=== PATIENT | male | born 2000 | race Caucasian/White ===

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

== ENCOUNTER 2018-10-22 18:05 | Emergency (ER) | payer OTHER ==
[~2018-10-22] VITALS: Ht 190.5 cm; Wt 89.7 kg
[2018-10-22 18:05] VITALS: BP 141/73
== END 2018-10-22 19:02 | disposition left against medical advice (07) ==
LOC: M ED 18:05
DX: Z53.21 Procedure and treatment not carried out due to patient leaving prior to being seen by health care provider (principal)

== ENCOUNTER 2019-03-05 15:09 | Inpatient (IN) | payer OTHER ==
[~2019-03-05] VITALS: Ht 193 cm; Wt 101.1 kg
[2019-03-05 15:44] LABS: HEMATOCRIT 45.3 % (42.0-52.0); HEMOGLOBIN 15.9 g/dl (13.5-17.5); MEAN CORPUSCULAR HEMOGLOBIN 30.8 pg (27.0-33.0); MEAN CORPUSCULAR HGB CONC 35.1 g/dl (32.0-36.5); MEAN CORPUSCULAR VOLUME 87.6 fl (80.0-96.0); PLATELET COUNT, AUTOMATED 245 10^3/uL (150-450); RED BLOOD COUNT 5.17 10^6/uL (4.30-6.10); WHITE BLOOD COUNT 6.5 10^3/uL (4.0-10.0)
[2019-03-05 16:19] LABS: ACETAMINOPHEN LEVEL < 2.0 UG/ML (10.0-30.0); ALT/SGPT 53 U/L (12-78); AMPHETAMINES LEVEL URINE NEGATIVE (NEGATIVE); BARBITURATES URINE NEGATIVE (NEGATIVE); BENZODIAZEPINES URINE NEGATIVE (NEGATIVE); BILIRUBIN,DIRECT < 0.1 MG/DL (0.0-0.2); BILIRUBIN,TOTAL 0.3 MG/DL (0.2-1.0); BLOOD UREA NITROGEN 10 MG/DL (7-18); CALCIUM LEVEL 8.8 MG/DL (8.5-10.1); CANNABINOIDS URINE NEGATIVE (NEGATIVE); CARBON DIOXIDE LEVEL 28 MEQ/L (21-32); CHLORIDE LEVEL 105 MEQ/L (98-107); COCAINE METABOLITE URINE NEGATIVE (NEGATIVE); CREATININE FOR GFR 0.83 MG/DL (0.70-1.30); ETHYL ALCOHOL (ETHANOL) < 0.003 % (0.000-0.010); GLOMERULAR FILTRATION RATE > 60.0 (>60); GLUCOSE, FASTING 90 MG/DL (70-100); METHADONE URINE NEGATIVE (NEGATIVE); OPIATES URINE NEGATIVE (NEGATIVE); PHENCYCLIDINE URINE NEGATIVE (NEGATIVE); SALICYLATE LEVEL < 1.7 MG/DL (5.0-30.0); SODIUM LEVEL 139 MEQ/L (136-145); TOTAL PROTEIN 7.2 GM/DL (6.4-8.2)
[2019-03-05] MEDS ORDERED: MAALOX 30 ML SUSP *UDC PO PRN (17:30)
[2019-03-05] MEDS ORDERED: ACETAMINOPHEN TAB 650MG DOSE (2X325MG) PO PRN (17:30)
[2019-03-05] MEDS ORDERED: MOM 30ML SUSPENSION UDC PO PRN (17:30)
[2019-03-05 18:29] VITALS: BP 131/67
[2019-03-06 06:28] VITALS: BP 117/60
[2019-03-06 11:24] VITALS: BP 127/64
--- NOTE | 2019-03-06 11:57 | MHHPEPDOC ---
General Date Of Admission: Mar 05, 2019 Legal Status: 9.39 Chief Complaint "I can't do another 2yrs like this." History of Present Illness HISTORY OF THE PRESENT ILLNESS: Patient is a 19 -year-old , AD, male, with no previous psych history who was sent to ED after seen at [facility] endorsing d epression and SI with plan to either crash his car or slit his wrist per ED. Pt stated in the ED "I need help." Per ED pt stated that his depression and SI were trigger by feeling harassed by his NCO, singled out by his Darryl, issued an Article 15 for no shaving, and being home sick as he's from [place] and has not seen his family in a while. States in ED "I can't do another 2yrs like this." Psychiatric Review of Systems Depression (2 or more weeks): depressed mood, feelings of worthlesness, difficulty concentrating, suicidal thoughts Gina (4 or more days of): denies Psychosis: denies PTSD: denies Anxiety: situational anxiety, stressor related anxiety Anxiety/ 6 months or more of: restlessness, keyed up, difficulty concentrating, irritability, muscle tension Past Psychiatric History Previous Psychiatric Diagnosis: denies Previous Psychiatric Admissions: denies Suicide Attempts: denies Psychiatric Follow-up: denies Psychiatric medications: denies Past Medical History Medical Problems denies Head Injury: No Seizures: No Hospitalizations: No Surgeries: No Family Medical/Psychiatric HX Medical Problems noncontributory Psychiatric Disorders: No Addiction: No Suicide Attemps/Completions: No Addiction History nicotine Social History Childhood: born and raised in [place], 2 parent home, good childhood, [facility] (according to [facility] has 50 days accrued leave but [facility] will not allow him to take time off) Abuse/Trauma:denies Current Living Situation: [facility] Education: high school grad 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, infantry, E3, 1 deployment for 9mo Social Support: family Legal: denies Marital: single, never , no kids Mental Status Examination General Appearance: well groomed, appears stated age, hospital scubs/clothing, other (b/l arm tatoos) Build: average, tall Demeanor: average Eye Contact: average Activity: average Behavior: cooperative Speech: clear, normal volume, reg/rate,rhythm,volume Mood: depressed Mood "better" Affect: full, appropriate, congruent Thought Process: logical/linear, depressed, intact Thought Content (Delusions): none reported, denies SI, HI, AVH Thought Content (Other): none reported, appropriate Thought Content (Aggressive): none reported Perception (Hallucinations): none reported Perception (Other): none reported Cognition (Impairment of): none reported Cognition(Intelligence Est.): average Oriented: Awake, Alert, Oriented times three Insight: fair Judgment: Fair Psychosis: Denies Diagnoses Adjustment d/o with Anxiety and Depression A-FIB/CHADSVASC A-FIB History Current/History of A-Fib/PAF?: No Current PO Anticoag Therapy: No Treatment Treatment ordered: NONE Reason Anticoagulant not given: Not indicated/Olalz6rind Assessment Pt seen and states he here b/c he was having thoughts of suicide and depression due the "army taking a toll on me and I got stressed out." States he feels his Darryl has been "singling me out" like having him go in the middle of a room in front of people and yelling at me to embarrass me. States he misses his family who couldn't see him in August when he wanted to come due to [employer] not covering his flight so has to wait till next August causing him to miss them as hasn't seen them for 1.5yrs. States he feels "better" today and denies SI/HI. States he believes he's depressed "due to being in the [employer]... being at work around certain people stresses me out." due to unit "picking on me." States being here and talking about it has been helpful for him. Denies he feels he needs alf psychotropic medication nor does he appear to need any as symptoms most likely due to current situation with Darryl and dislike of the army, missing family and pt prefers to try group therapy and talking with staff and myself to help mood. Will provide him with atarax prn anxiety and trazodone prn insomnia. Feels safe here. Denies SI/HI, hallucinations, delusions. Initial Treatment Plan 1. Patient was admitted on a 9.39 status. 2. Complete history was obtained. 3. With patients permission, family will be contacted and database will be expanded. 4. Patients medication regimen will be reviewed and changed accordingly. 5. Patient will be provided with protected environment. 6. Patient will be treated with individual, group, and milieu therapies. 7. Patient will receive supportive psych-education. 8. Discharge planning will commence immediately. 9. Outpatient follow-up treatment will be strongly recommended. 10. The initial treatment plan will focus initially on: * Depression. * Risk for suicide. * Substance abuse. 11. atarax 25mg q6hr prn anxiety and trazodone 50mg qhs prn insomnia ESTIMATED LENGTH OF STAY: 3-5 DAYS. TIME SPENT COUNSELING AND COORDINATING INITIAL CARE: 60 minutes. Vital Signs Vital Signs Date Time Temp Pulse Resp B/P (MAP) Pulse Ox O2 Delivery O2 Flow Rate FiO2 03/06/19 06:28 98.7 88 16 117/60 (79) 03/05/19 18:29 99 03/05/19 17:42 Room Air Laboratory Data 24H Labs Laboratory Tests 2 03/05/19 15:25: Nucleated Red Blood Cells % (auto) 0.0, Anion Gap 6L, Glomerular Filtration Rate > 60.0, Calcium Level 8.8, Aspartate Amino Transf (AST/SGOT) 22, Alanine Aminotransferase (ALT/SGPT) 53, Alkaline Phosphatase 88, Total Bilirubin 0.3, Direct Bilirubin < 0.1, Total Protein 7.2, Albumin 4.0, Albumin/Globulin Ratio 1 .25, Thyroid Stimulating Hormone (TSH) 0.970, Salicylates Level < 1.7L, Urine Amphetamines Screen NEGATIVE, Urine Benzodiazepines Screen NEGATIVE, Urine Opiates Screen NEGATIVE, Urine Methadone Screen NEGATIVE, Acetaminophen Level < 2.0L, Urine Barbiturates Screen NEGATIVE, Urine Phencyclidine Screen NEGATIVE, Urine Cocaine Metabolite Screen NEGATIVE, Urine Cannabinoids Screen NEGATIVE, Ethyl Alcohol Level < 0.003 CBC/BMP Laboratory Tests 03/05/19 15:25 Red Blood Count 5.17, Mean Corpuscular Volume 87.6, Mean Corpuscular Hemoglobin 30.8, Mean Corpuscular Hemoglobin Concent 35.1, Red Cell Distribution Width 12.8 Medications No Active Prescriptions or Reported Meds Allergies Coded Allergies: No Known Drug Allergies (Verified Allergy, Unknown, 03/05/19) SHAWN GONZALEZ DO Mar 06, 2019 11:56
--- NOTE | 2019-03-06 13:53 | HPEPDOC ---
General Date of Admission Mar 05, 2019 at 17:52 Date of Service: Mar 06, 2019 Attending Physician: LENARD NELSON MD Chief Complaint The patient is a 19-year-old male admitted with a reason for visit of Unspecified Depressive Do. History of Present Illness Patient is a 19-year-old male, active duty , brought to the emergency room and admitted to inpatient psychiatric unit on account of depression with suicidal ideation. On assessment, he denies any medical history. He denies any symptoms of chest pain, shortness of breath, weakness, nausea, abdominal pain, chills, fever. Home Medications No Active Prescriptions or Reported Meds Allergies Coded Allergies: No Known Drug Allergies (Verified Allergy, Unknown, 03/05/19) Past Medical History Medical History Denies medical history Surgical History Denies surgical history Family History Denies any family history Social History * Smoker: Denies Alcohol: Denies Drugs: denies A-FIB/CHADSVASC A-FIB History Current/History of A-Fib/PAF?: No Current PO Anticoag Therapy: No Review of Systems Other systems A 10 point pertinent review of systems was completed, negative except as stated in the history of presenting illness. Physical Examination Other physical findings GENERAL: NAD SKIN : Warm, dry intact HEENT: Atraumatic, normocephalic, PERRL, moist mucous membrane CARDIOVASCULAR: Regular rate and rhythm, S1S2, no JVD, no edema, distal pulses + and palpable RESP: CTAB, no accessory muscle use noted ABDOMEN: BS+ non distended non tender MS: no joint deformities NEURO: Alert and oriented x 3, CN2-12 grossly intact PSYCH: no anxiety or agitation, flat affect. Vital Signs Vital Signs Date Time Temp Pulse Resp B/P (MAP) Pulse Ox O2 Delivery O2 Flow Rate FiO2 03/06/19 11:24 98.5 75 16 127/64 (85) 03/05/19 18:29 99 03/05/19 17:42 Room Air Laboratory Data Labs 24H Laboratory Tests 2 03/05/19 15:25: Nucleated Red Blood Cells % (auto) 0.0, Anion Gap 6L, Glomerular Filtration Rate > 60.0, Calcium Level 8.8, Aspartate Amino Transf (AST/SGOT) 22, Alanine Aminotransferase (ALT/SGPT) 53, Alkaline Phosphatase 88, Total Bilirubin 0.3, Direct Bilirubin < 0.1, Total Protein 7.2, Albumin 4.0, Albumin/Globulin Ratio 1.25, Thyroid Stimulating Hormone (TSH) 0.970, Salicylates Level < 1.7L, Urine Amphetamines Screen NEGATIVE, Urine Benzodiazepines Screen NEGATIVE, Urine Opiates Screen NEGATIVE, Urine Methadone Screen NEGATIVE, Acetaminophen Level < 2.0L, Urine Barbiturates Screen NEGATIVE, Urine Phencyclidine Screen NEGATIVE, Urine Cocaine Metabolite Screen NEGATIVE, Urine Cannabinoids Screen NEGATIVE, Ethyl Alcohol Level < 0.003 CBC/BMP Laboratory Tests 03/05/19 15:25 Red Blood Count 5.17, Mean Corpuscular Volume 87.6, Mean Corpuscular Hemoglobin 30.8, Mean Corpuscular Hemoglobin Concent 35.1, Red Cell Distribution Width 12.8 Assessment/Plan Depression with suicidal ideation Assessment and plan Patient currently has no medical underlying comorbidities requiring further evaluation and management by medical team. Management of acute psychiatric problem by primary team. Please reconsult medical team as needed. Plan / VTE VTE Prophylaxis Ordered?: No VTE Exclusion Mechanical Proph: Low Risk for VTE [facility] Mar 06, 2019 13:53
[2019-03-06 18:08] VITALS: BP 130/67
[2019-03-07 06:41] VITALS: BP 128/60
--- NOTE | 2019-03-07 09:40 | MHIPNPDOC ---
[facility] Progress Note Progress Note DATE OF SERVICE: 03/07/19 HISTORY: Patient is a 19 -year-old , AD, male, with no previous psych history who was sent to ED after seen at [facility] endorsing depression and SI with plan to either crash his car or slit his wrist per ED. Pt stated in the ED "I need help." Per ED pt stated that his depression and SI were trigger by feeling harassed by his NCO, singled out by his Darryl, issued an Article 15 for no shaving, and being home sick as he's from [place] and has not seen his family in a while. States in ED "I can't do another 2yrs like this." VITAL SIGNS: see below NEW TEST RESULTS: see below CURRENT MEDICATIONS: See below. MENTAL STATUS EXAMINATION: General Appearance: well groomed, appears stated age, hospital scrubs/clothing, other (b/l arm tatoos) Build: average, tall Demeanor: average Eye Contact: average Activity: average Behavior: cooperative Speech: clear, normal volume, reg/rate,rhythm,volume Mood: less depressed Mood "ok" Affect: full, appropriate, congruent Thought Process: logical/linear, depressed, intact Thought Content (Delusions): none reported, denies SI, HI, AVH Thought Content (Other): none reported, appropriate Thought Content (Aggressive): none reported Perception (Hallucinations): none reported Perception (Other): none reported Cognition (Impairment of): none reported Cognition(Intelligence Est.): average Oriented: Awake, Alert, Oriented times three Insight: fair Judgment: Fair Psychosis: Denies DIAGNOSES: Adjustment d/o with Anxiety and Depression ASSESSMENT:Pt seen and states he he feels "ok" today and denies SI/HI. States he slept well last night and denies anxiety so hasn't needed to take atarax. States "it's calm here, there's no stimuli" to make him anxious. Is attending groups and finding the beneficial, learning coping skills for mood and anxiety. Feels safe here. Denies SI/HI, hallucinations, delusions. MANAGEMENT PLAN: continue plan. Medications: atarax 25mg q6hr prn anxiety trazodone 50mg qhs prn insomnia TIME SPENT: 30 minutes. Vital Signs Vital Signs Date Time Temp Pulse Resp B/P (MAP) Pulse Ox O2 Delivery O2 Flow Rate FiO2 6/27/19 06:41 98.1 88 12 128/60 (82) 03/05/19 18:29 99 03/05/19 17:42 Room Air Current Medications Current Medications Acetaminophen (Tylenol Tab) 650 mg Q6HP PRN PO HEADACHE or DISCOMFORT; Start 03/05/19 at 17:30 Al Hydrox/Mg Hydrox/Simethicone (Mylanta) 30 ml Q4HP PRN PO HEARTBURN/INDIGESTION; Start 03/05/19 at 17:30 Hydroxyzine HCl (Atarax) 25 mg Q6HP PRN PO ANXIETY; Start 03/06/19 at 12:00 Magnesium Hydroxide (Milk Of Magnesia) 30 ml DAILYPRN PRN PO CONSTIPATION; Start 03/05/19 at 17:30 Trazodone HCl (Desyrel) 50 mg QHSP PRN PO INSOMNIA; Start 03/05/19 at 17:30 Allergies Coded Allergies: No Known Drug Allergies (Verified Allergy, Unknown, 03/05/19) SHAWN GONZALEZ DO Mar 07, 2019 9:40 am
[2019-03-07 18:00] VITALS: BP 156/78
[2019-03-08 07:11] VITALS: BP 142/62
--- NOTE | 2019-03-08 10:19 | MHIPNPDOC ---
[facility] Progress Note Progress Note DATE OF SERVICE: 03/08/19 HISTORY: Patient is a 19 -year-old , AD, male, with no previous psych history who was sent to ED after seen at [facility] endorsing depression and SI with plan to either crash his car or slit his wrist per ED. Pt stated in the ED "I need help." Per ED pt stated that his depression and SI were trigger by feeling harassed by his NCO, singled out by his Darryl, issued an Article 15 for no shaving, and being home sick as he's from [place] and has not seen his family in a while. States in ED "I can't do another 2yrs like this." VITAL SIGNS: see below NEW TEST RESULTS: see below CURRENT MEDICATIONS: See below. MENTAL STATUS EXAMINATION: General Appearance: well groomed, appears stated age, hospital scrubs/clothing, other (b/l arm tatoos) Build: average, tall Demeanor: average Eye Contact: average Activity: average Behavior: cooperative Speech: clear, normal volume, reg/rate,rhythm,volume Mood: less depressed Mood "alright" Affect: full, appropriate, congruent Thought Process: logical/linear, depressed, intact Thought Content (Delusions): none reported, denies SI, HI, AVH Thought Content (Other): none reported, appropriate Thought Content (Aggressive): none reported Perception (Hallucinations): none reported Perception (Other): none reported Cognition (Impairment of): none reported Cognition(Intelligence Est.): average Oriented: Awake, Alert, Oriented times three Insight: fair Judgment: Fair Psychosis: Denies DIAGNOSES: Adjustment d/o with Anxiety and Depression ASSESSMENT:Pt seen and states he he feels "ok" today and denies SI/HI. States he slept well last night and but does endorse some anxiety due to his peers yelling on the unit. States he feels an antidepressant may be beneficial for him to start and discussed starting zoloft and is agreeable, risks/benefits discussed. Spoke with the prepress operator yesterday and found it beneficial. Is attending groups and finding the beneficial, learning coping skills for mood and anxiety. Feels safe here. Denies SI/HI, hallucinations, delusions. MANAGEMENT PLAN: continue plan. Start zoloft 25mg daily for mood Medications: atarax 25mg q6hr prn anxiety trazodone 50mg qhs prn insomnia zoloft 25mg daily TIME SPENT: 30 minutes. Vital Signs Vital Signs Date Time Temp Pulse Resp B/P (MAP) Pulse Ox O2 Delivery O2 Flow Rate FiO2 03/08/19 07:11 96.4 60 16 142/62 (88) 03/05/19 18:29 99 03/05/19 17:42 Room Air Current Medications Current Medications Acetaminophen (Tylenol Tab) 650 mg Q6HP PRN PO HEADACHE or DISCOMFORT; Start 03/05/19 at 17:30 Al Hydrox/Mg Hydrox/Simethicone (Mylanta) 30 ml Q4HP PRN PO HEARTBURN/INDIGESTION; Start 03/05/19 at 17:30 Hydroxyzine HCl (Atarax) 25 mg Q6HP PRN PO ANXIETY; Start 03/06/19 at 12:00 Magnesium Hydroxide (Milk Of Magnesia) 30 ml DAILYPRN PRN PO CONSTIPATION; Start 03/05/19 at 17:30 Trazodone HCl (Desyrel) 50 mg QHSP PRN PO INSOMNIA; Start 03/05/19 at 17:30 Allergies Coded Allergies: No Known Drug Allergies (Verified Allergy, Unknown, 03/05/19) SHAWN GONZALEZ DO Mar 08, 2019 10:19 am
[2019-03-08 18:14] VITALS: BP 127/60
[2019-03-08] MEDS: traZODone 50 MG TAB PO PRN (22:21)
[2019-03-09 06:38] VITALS: BP 99/55
[2019-03-09] MEDS: SERTRALINE HCL 25 MG TABLET PO SCH (09:17)
--- NOTE | 2019-03-09 10:22 | MHIPNPDOC ---
[facility] Progress Note Progress Note DATE OF SERVICE: 03/09/19 HISTORY: Patient is a 19 -year-old , AD, male, with no previous psych history who was sent to ED after seen at [facility] endorsing depression and SI with plan to either crash his car or slit his wrist per ED. Pt stated in the ED "I need help." Per ED pt stated that his depression and SI were trigger by feeling harassed by his NCO, singled out by his Darryl, issued an Article 15 for no shaving, and being home sick as he's from [place] and has not seen his family in a while. States in ED "I can't do another 2yrs like this." VITAL SIGNS: see below NEW TEST RESULTS: see below CURRENT MEDICATIONS: See below. MENTAL STATUS EXAMINATION: General Appearance: well groomed, appears stated age, hospital scrubs/clothing, other (b/l arm tatoos) Build: average, tall Demeanor: average Eye Contact: average Activity: average Behavior: cooperative Speech: clear, normal volume, reg/rate,rhythm,volume Mood: less depressed Mood "alright" Affect: full, appropriate, congruent Thought Process: logical/linear, less depressed, intact Thought Content (Delusions): none reported, denies SI, HI, AVH Thought Content (Other): none reported, appropriate Thought Content (Aggressive): none reported Perception (Hallucinations): none reported Perception (Other): none reported Cognition (Impairment of): none reported Cognition(Intelligence Est.): average Oriented: Awake, Alert, Oriented times three Insight: fair Judgment: Fair Psychosis: Denies DIAGNOSES: Adjustment d/o with Anxiety and Depression ASSESSMENT:Pt seen and states he he feels "alright" today and denies SI/HI. States he had difficulty sleeping last night and agreeable to increase in trazodone to help. Just took zoloft for the first time today and will see how he does and if he finds it beneficial and tolerates it well. Is attending groups and finding the beneficial, learning coping skills for mood and anxiety. Feels safe here. Denies SI/HI, hallucinations, delusions. MANAGEMENT PLAN: continue plan. increase trazodone Medications: atarax 25mg q6hr prn anxiety trazodone 100mg qhs prn insomnia zoloft 25mg daily TIME SPENT: 30 minutes. Vital Signs Vital Signs Date Time Temp Pulse Resp B/P (MAP) Pulse Ox O2 Delivery O2 Flow Rate FiO2 03/09/19 06:38 97.4 72 12 99/55 (70) 03/05/19 18:29 99 03/05/19 17:42 Room Air Current Medications Current Medications Acetaminophen (Tylenol Tab) 650 mg Q6HP PRN PO HEADACHE or DISCOMFORT; Start 03/05/19 at 17:30 Al Hydrox/Mg Hydrox/Simethicone (Mylanta) 30 ml Q4HP PRN PO HEARTBURN/INDIGESTION; Start 03/05/19 at 17:30 Hydroxyzine HCl (Atarax) 25 mg Q6HP PRN PO ANXIETY; Start 03/06/19 at 12:00 Magnesium Hydroxide (Milk Of Magnesia) 30 ml DAILYPRN PRN PO CONSTIPATION; Start 03/05/19 at 17:30 Sertraline HCl (Zoloft) 25 mg DAILY PO Last administered on 03/09/19at 09:17; Start 03/09/19 at 09:00 Trazodone HCl (Desyrel) 50 mg QHSP PRN PO INSOMNIA Last administered on 03/08/19at 22:21; Start 03/05/19 at 17:30 Allergies Coded Allergies: No Known Drug Allergies (Verified Allergy, Unknown, 03/05/19) SHAWN GONZALEZ DO Mar 09, 2019 10:22 am
[2019-03-09 18:00] VITALS: BP 130/78
[2019-03-10] MEDS: traZODone 50 MG TAB PO PRN ×2 (02:10→22:33)
[2019-03-10 06:39] VITALS: BP 100/52
[2019-03-10] MEDS: SERTRALINE HCL 25 MG TABLET PO SCH (09:10)
[2019-03-10] MEDS: hydrOXYzine 25 MG TAB PO PRN ×2 (16:11→22:34)
[2019-03-10 18:00] VITALS: BP 119/66
[2019-03-11 06:53] VITALS: BP 107/58
--- NOTE | 2019-03-11 09:10 | MHDSPDOC ---
[facility] Discharge Summary Discharge Summary DATE OF ADMISSION: Mar 05, 2019 at 5:52 pm DATE OF DISCHARGE: March 11, 2019 DISCHARGE DIAGNOSES: Adjustment d/o with Anxiety and Depression REASON FOR ADMISSION: Patient is a 19 -year-old , AD, male, with no previous psych history who was sent to ED after seen at [facility] endorsing depression and SI with plan to either crash his car or slit his wrist per ED. Pt stated in the ED "I need help." Per ED pt stated that his depression and SI were trigger by feeling harassed by his NCO, singled out by his Darryl, issued an Article 15 for no shaving, and being home sick as he's from [place] and has not seen his family in a while. States in ED "I can't do another 2yrs like this." CONSULTANTS INVOLVED: none TREATMENT AND PROGRESS ON THE UNIT : Pt was admitted to [facility], seen for psychiatric assessment and started on zoloft 25mg daily. He was provided vistaril 25mg q6hr prn anxiety and trazodone 100mg qhs prn insomnia. Pt found his medications beneficial and tolerated them well. He attended groups daily during his stay. His symptoms improved with treatment. On day of discharge he denied depression, anxiety, insomnia, SI/HI, hallucinations, delusions. He was discharged home after Darryl meeting with follow-up at [facility]. He felt safe for discharge. DISCHARGE ASSESSMENT: Pt seen and states he feels "good" today and denies SI/HI. States he's looking forward to being discharged home with his Darryl today. States he's sleeping well tonight. States he's tolerating his medication well and feels it's beneficial. Is attending groups and finding the beneficial, learning coping skills for mood and anxiety. Feels safe to be discharged home with his Darryl. Denies depression, anxiety, insomnia, SI/HI, hallucinations, delusions. MENTAL STATUS EXAMINATION ON DISCHARGE: General Appearance: well groomed, appears stated age, hospital scrubs/clothing, other (b/l arm tatoos) Build: average, tall Demeanor: average Eye Contact: average Activity: average Behavior: cooperative Speech: clear, normal volume, reg/rate,rhythm,volume Mood: euthymic, full range Mood "good" Affect: full, appropriate, congruent Thought Process: logical/linear, intact Thought Content (Delusions): none reported, denies SI, HI, AVH Thought Content (Other): none reported, appropriate Thought Content (Aggressive): none reported Perception (Hallucinations): none reported Perception (Other): none reported Cognition (Impairment of): none reported Cognition(Intelligence Est.): average Oriented: Awake, Alert, Oriented times three Insight: good Judgment: good Psychosis: Denies MEDICATIONS ON DISCHARGE: atarax 25mg q6hr prn anxiety trazodone 100mg qhs prn insomnia zoloft 25mg daily PLAN/FOLLOWUP ARRANGEMENTS: D/c home with [facility] with follow-up at [facility]. The amount of time spent in the coordination of care for this patient was approximately 30 minutes. Vital Signs/I&Os Vital Signs Date Time Temp Pulse Resp B/P (MAP) Pulse Ox O2 Delivery O2 Flow Rate FiO2 03/11/19 06:53 97.3 72 12 107/58 (74) 03/05/19 18:29 99 03/05/19 17:42 Room Air Medications No Active Prescriptions or Reported Meds Allergies Coded Allergies: No Known Drug Allergies (Verified Allergy, Unknown, 03/05/19) SHAWN GONZALEZ DO Mar 11, 2019 9:09 am
[2019-03-11] MEDS: SERTRALINE HCL 25 MG TABLET PO SCH (09:15)
[2019-03-11] MEDS ORDERED: HYDR-3363 PO (09:31)
[2019-03-11] MEDS ORDERED: SERT25TA88 PO (09:31)
[2019-03-11] MEDS ORDERED: TRAZ-252 PO (09:31)
== END 2019-03-11 11:45 | disposition home or self-care (01) | DRG 882 ==
LOC: M ED 15:09 → M PSY 17:52
PROVIDERS: ADMIT Psychiatry & Neurology Psychiatry; ATTEND Psychiatry & Neurology Psychiatry
DX: F43.23 Adjustment disorder with mixed anxiety and depressed mood (principal); R45.851 Suicidal ideations